=== PATIENT | male | born 1960 | race Caucasian/White ===

== ENCOUNTER 2023-10-29 06:40 | Observation (INO) | payer BC ==
[2023-10-15 11:47] VITALS: BMI 34.2
[2023-10-29] MEDS ORDERED: Gentamicin 80 MG/2 ML VIAL ONE (07:06)
[2023-10-29] MEDS ORDERED: Sodium Chloride 0.9% 200 ML ONE (07:06)
[2023-10-29] MEDS ORDERED: ceFOXitin 1 GM VIAL ONE (07:06)
[2023-10-29] MEDS ORDERED: Rocuronium Bromide 10 MG/ML (10ML VIAL) ONE ×3 (07:16→11:04)
[2023-10-29] MEDS ORDERED: PROPOFOL 20 ML ONE (07:16)
[2023-10-29] MEDS ORDERED: Glycopyrrolate 0.2 MG/ML 5 ML SYRINGE ONE (07:16)
[2023-10-29] MEDS ORDERED: SUGAMMADEX SODIUM 200 MG/2 ML VIAL ONE ×2 (07:16→13:17)
[2023-10-29] MEDS ORDERED: fentaNYL PF 100 MCG/2 ML SYRINGE ONE ×2 (07:16→14:01)
[2023-10-29] MEDS ORDERED: Lidocaine 2% PF 100 mg/5 ml Syringe ONE (07:16)
[2023-10-29] MEDS ORDERED: Dexamethasone 20 MG/5 ML VIAL ONE (07:16)
[2023-10-29] MEDS ORDERED: Ondansetron PF 4 MG/2 ML Vial ONE (07:16)
[2023-10-29] MEDS ORDERED: PHENYLEPHRINE-NS 100 MCG/ML 10 ML SYRINGE ONE ×2 (07:16→09:40)
[2023-10-29] MEDS ORDERED: ePHEDrine Sulfate 50 MG/10 ML VIAL ONE (08:07)
[2023-10-29] MEDS ORDERED: HYDROmorphone 2 MG/ML VIAL ONE (08:58)
[2023-10-29] MEDS ORDERED: Bupivacaine 0.25% HCL 30 ML VIAL ONE (09:57)
[2023-10-29] MEDS ORDERED: Albumin 5% 250 ML ONE (12:47)
[2023-10-29] MEDS ORDERED: Bupivacaine/Epinephrine 0.25% 30 ML VIAL ONE (13:45)
[2023-10-29] MEDS ORDERED: hydrALAZINE 20 MG/ML VIAL SLOW IVP PRN (14:20)
[2023-10-29] MEDS ORDERED: Oxybutynin 5 MG TAB PO PRN (14:20)
[2023-10-29] MEDS ORDERED: Ondansetron PF 4 MG/2 ML Vial IVP PRN (14:20)
[2023-10-29] MEDS ORDERED: diphenhydrAMINE 25 MG CAP PO PRN (14:20)
[2023-10-29] MEDS ORDERED: clonazePAM 0.5 MG TAB PO PRN (14:23)
[2023-10-29] MEDS ORDERED: oxyCODONE 5 MG TAB PO PRN ×2 (14:24)
[2023-10-29 14:37] LABS: Hematocrit 45.7 % (42.0-52.0); Hemoglobin 15.7 g/dL (14.0-18.0); Mean Corpuscular HGB CONC 34.4 g/dL (32.0-36.0); Mean Corpuscular Hemoglobin 30.7 pg (27.0-31.0); Mean Corpuscular Volume 89.4 fL (78.0-98.0); Mean Platelet Volume 8.9 fL (7.4-10.4); Platelet Count 208 10x3/uL (130-400); RBC Distribution Width 13.2 % (11.5-14.5); Red Blood Cell (RBC) Count 5.11 mill/uL (4.70-6.10)
[2023-10-29 14:58] LABS: Anion Gap 11 mmol/L (10-20); BUN (Urea Nitrogen) 10 mg/dL (8.4-25.7); Calc. Creatinine Clearance 116 mL/min (70-130); Calcium 8.2 mg/dL (7.8-10.44); Carbon Dioxide 22 mmol/L (23-31); Chloride 108 mmol/L (98-107); Estimated GFR 87; Glucose 158 mg/dL (80-115); Potassium 4.1 mmol/L (3.5-5.1); Sodium 137 mmol/L (136-145)
[2023-10-29] MEDS: Sodium Chloride 0.9% 1,000 ML IV SCH (15:50)
[2023-10-29] MEDS ORDERED: fentaNYL 50 mcg/mL 1 mL Vial SLOW IVP PRN (15:51)
[2023-10-29] MEDS ORDERED: cefOXitin 1 GM in Sodium Chloride 0.9% 100 ML IVPB SCH (16:00)
[2023-10-29] MEDS: traMADol HCl 50 MG TAB PO SCH (17:00)
[2023-10-29] MEDS: cefOXitin Sodium 1 GM in Sodium Chloride 0.9% 100 ML IVPB SCH (17:00)
[2023-10-29] MEDS: Ketorolac Tromethamine 30 MG (1 mL) VIAL IVP SCH (17:01)
[2023-10-29] MEDS: Acetaminophen 500 MG TAB PO SCH (17:01)
[2023-10-29] MEDS: Carvedilol 3.125 MG TAB PO SCH (17:01)
[2023-10-29] MEDS: ceFOXitin 1 GM VIAL ONE (17:01)
[2023-10-29] MEDS: Ramipril 5 MG CAP PO SCH (20:35)
[2023-10-29] MEDS: Atorvastatin Calcium 40 MG TAB PO SCH (20:36)
[2023-10-29] MEDS: Docusate 100 MG CAP PO SCH (20:36)
[2023-10-30 05:10] LABS: #Basophils Less than 0.03 10x3/uL (0.0-0.2); #Eosinphils Less than 0.03 10x3/uL (0.0-0.7); %Basophils 0.2 % (0.0-1.0); %Eosinophils 0.1 % (0.0-10.0); %Lymphocytes 23.3 % (21.0-51.0); %Monocytes 10.8 % (0.0-10.0); %Neutrophils 65.3 % (42.0-75.0); Hematocrit 42.8 % (42.0-52.0); Hemoglobin 14.4 g/dL (14.0-18.0); Mean Corpuscular HGB CONC 33.6 g/dL (32.0-36.0); Mean Corpuscular Hemoglobin 29.8 pg (27.0-31.0); Mean Corpuscular Volume 88.6 fL (78.0-98.0); Mean Platelet Volume 9.6 fL (7.4-10.4); Platelet Count 201 10x3/uL (130-400); RBC Distribution Width 13.7 % (11.5-14.5); Red Blood Cell (RBC) Count 4.83 mill/uL (4.70-6.10)
[2023-10-30 05:30] LABS: Anion Gap 12 mmol/L (10-20); BUN (Urea Nitrogen) 10 mg/dL (8.4-25.7); Calc. Creatinine Clearance 96 mL/min (70-130); Calcium 7.9 mg/dL (7.8-10.44); Carbon Dioxide 23 mmol/L (23-31); Chloride 107 mmol/L (98-107); Estimated GFR 68; Glucose 115 mg/dL (80-115); Potassium 4.2 mmol/L (3.5-5.1); Sodium 138 mmol/L (136-145)
[2023-10-30] MEDS: Pantoprazole DR 40 MG TAB PO SCH (08:45)
[2023-10-30 11:55] VITALS: BP 111/71; TEMP 98.3
== END 2023-10-30 12:30 | disposition home or self-care (01) ==
LOC: SDC 06:40 → SURG A 16:16 → INTOOBSV 16:16
PROVIDERS: ADMIT Urology; ATTEND Urology
PROC: 0VT04ZZ Resection of Prostate, Percutaneous Endoscopic Approach (ICD-10-PCS; principal; 2023-10-30)
PROC: 07TC4ZZ Resection of Pelvis Lymphatic, Percutaneous Endoscopic Approach (ICD-10-PCS; 2023-10-30)
PROC: 00JU3ZZ Inspection of Spinal Canal, Percutaneous Approach (ICD-10-PCS; 2023-10-30)
DX: C61 Malignant neoplasm of prostate (principal); K21.9 Gastro-esophageal reflux disease without esophagitis; I10 Essential (primary) hypertension; E78.5 Hyperlipidemia, unspecified; Z79.899 Other long term (current) drug therapy; Z88.8 Allergy status to other drugs, medicaments and biological substances
CPT/HCPCS: 36415; 80048; 85025; 85027; 86850; 86900; 86901; 88309; A4333; C1713; C1776; C1889; C2613; J0665; J0694; J1100; J1170; J1580; J1642; J1885; J2001; J2405; J2704; J3490; P9045